=== PATIENT | female | born 1985 | race Caucasian/White ===

== ENCOUNTER 2016-11-26 06:30 | Emergency (ER) | payer OTHER ==
[~2016-11-26] VITALS: Ht 175.3 cm; Wt 77.1 kg
--- NOTE | ~2016-11-26 | CT71 ---
[facility] A Service of [facility] / [facility] RADIOLOGY TEXT RESULTS PATIENT: TONA SNYDER LOCATION: SED : 89 UNIT #: [id number] AGE: [address]: Som More MD SEX: F ORDER DR: [id number] [address] [address] [id number] E MR#: [id number] Acc #: [id number] NAME: TONA SNYDER : 1985 SEX: F STUDY DATE/TIME: 11/26/2016 7:47 UNIT: SED ROOM: STUDY DESCRIPTION: CT Head Wo Contrast Attending Physician: Som More M.D. Ordering Physician: Som More M.D. Primary Care Physician: No Primary Care Physician MEDICAL IMAGING REPORT This report is preliminary unless electronic signature is present. EXAM CT scan of the head without contrast. HISTORY Migraine headache for several hours with visual disturbances. The patient is 5 days . COMPARISON 02/16/2016 TECHNIQUE Unenhanced images were obtained through the brain. This CT exam was performed with one or more of the following radiation dose reduction techniques: automatic exposure control, adjustment of mA and/or kV according to patient size, and iterative reconstruction. FINDINGS The ventricles and subarachnoid spaces are normal. There are no masses or extraaxial fluid collections or hemorrhage. There is mucosal thickening in the sphenoid and right maxillary sinus. IMPRESSION 1. Right maxillary sinus and sphenoid mucosal thickening. 2. Otherwise normal. Dictated by... Alan Quiñonez M.D. [facility] A Service of [facility] / [facility] RADIOLOGY TEXT RESULTS PATIENT: TONA SNYDER LOCATION: SED : 89 UNIT #: [id number] AGE: [address]: Som More MD SEX: F ORDER DR: THIS IS AN ELECTRONICALLY VERIFIED REPORT Alan Quiñonez M.D. at 11/26/2016 2:51 PM MONICA/osvaldo TD: 11/26/2016 12:49 JOB #: [id number] MEDICAL IMAGING REPORT Page 1 of 1
[~2016-11-26 06:30] MED LIST: FAMOTIDINE PO; NORCO 5/325 TAB1 TAB PO; PHENERGAN25 MG PO; PROMETHEGAN12.5 MG RC
[2016-11-26] MEDS ORDERED: MACROBID100 MG PO (06:44)
== END 2016-11-26 09:05 | disposition home or self-care (01) ==
LOC: SED 06:30
DX: G44.209 Tension-type headache, unspecified, not intractable (principal); J32.0 Chronic maxillary sinusitis; F41.9 Anxiety disorder, unspecified
CPT/HCPCS: 70450; 96372; 99284; J0780; J1200